=== PATIENT | female | born 1945 | race Caucasian/White ===

== ENCOUNTER 2017-04-09 02:22 | Emergency (ER) | payer BC, MEDICARE ==
[2017-04-09] MEDS ORDERED: ONDANSETRON ODT 4 MG TAB.RAPDIS ONE (02:55)
[2017-04-09] MEDS ORDERED: AMOXICILLIN 250 MG CAPSULE PO ONE (03:14)
--- NOTE | 2017-04-09 03:15 | ER NURSING DOCUMENTATION ---
Nurse's Notes [facility] Name:Vero Reeves Age:71 yrs Sex:Female :1945 Arrival Date:04/09/2017 Time:02:22 Bed4 Private MD:Timoteo Lopes Diagnosis:Acute Sinusitis Presentation: 04/09 02:32 Transition of care: patient was not received from another setting of care. Notified ED nf Physician of patient's arrival and CC Dr. Coburn notified. 02:32 Acuity: EVARISTO 3 nf 02:32 Method Of Arrival: Walk In nf 02:32 Presenting complaint: Patient states: "I've has a sinus infection since the "; nf patient states since March 28 while traveling she has had sinus congestion and productive cough and earaches and mild sore throat; has not yet seen a physician for symptoms; took mucinex tonight; has vomited x2 tonight after "gagging on drainage" and coughing. Triage Assessment: 02:36 General: Appears ill, well nourished, well groomed, Behavior is pleasant. Pain: nf Complains of pain in bilateral earaches, sore throat, sinus pain. 02:36 Cardiovascular: Rhythm is regular. Respiratory: Respiratory effort is even, unlabored, nf Respiratory pattern is regular, Breath sounds are clear bilaterally. Reports cough that is productive, persistent the patient has moderate shortness of breath. GI: Reports nausea. Historical: - Allergies: Erythromycin; - Home Meds: 1. Metformin Oral 2. Glyburide Oral - PMHx: Diabetes - NIDDM; HIGH CHOLESTEROL; Cervical Sprain - : Acute (April 13, 2016); - PSHx: NA ; - Tetanus: Other NA today. - Ebola Screening: : Patient denies exposure to infectious person. Patient reports travel to an Ebola-affected area in the 21 days before illness onset. Patient reports to have traveled to [place]. - Immunization history: Pneumococcal vaccine is up to date, Flu Vaccine < 1 year. - Social history: Smoking status: Patient uses tobacco products, current every day smoker. Patient/guardian denies using alcohol. Screenin:39 Infectious Disease Risk None. Abuse screen: Denies threats or abuse. Nutritional nf screening: No deficits noted. Assessment: 02:39 See Triage Assessment done by same RN. nf Vital Signs: 02:00 BP 140 / 86; Pulse 52; Resp 18; Temp 97.5(O); Pulse Ox 95% on R/A; Weight 77.11 kg; nf Height 5 ft. 8 in. (172.72 cm); Pain 5/10; 03:12 BP 136 / 81; Pulse 64; Resp 16; nf 02:00 Body Mass Index 25.85 (77.11 kg, 172.72 cm) ED Course: 02:23 Patient arrived in ED. em2 02:23 Timoteo Lopes MD is Private Physician. em2 02:30 Irlanda Swanson RN is Primary Nurse. nf 02:34 Triage completed. nf 02:34 William Coburn MD is Attending Physician. sc 02:39 Arm band placed on Bed in low position Call Light in Reach Gowned Side rails up x1. nf 02:39 Valuables Remains with patient. Pulse Ox - RN Monitoring Only NIBP On - RN Monitoring nf Only. Door closed. Noise minimized. Lights dimmed. Moved to private room. Verbal reassurance given. Warm blanket given. Pillow given. Diet: Patient given water. 02:59 Timoteo Lopes MD is Referral Physician. sc Administered Medications: 02:45 Drug: Zofran 4 mg; Route: PO; nf 03:00 Follow up: Response: Nausea is decreased nf 03:00 Drug: Amoxicillin 500 mg; Route: PO; nf 03:00 Follow up: Response: Medication administered at discharge. nf Outcome: 03:00 Discharge ordered by . id 03:12 Discharged to home ambulatory. nf 03:12 Condition: improved 03:12 Discharge Assessment: Patient awake, alert and oriented x 3. No cognitive and/or functional deficits noted. Patient verbalized understanding of disposition instructions. 03:12 Discharge instructions given to patient, Instructed on discharge instructions, follow up and referral plans. medication usage, Demonstrated understanding of instructions, medications, Prescriptions given X 2, amoxicillin and nasonex and encouraged to get neti pot for sinus irrigation 03:14 Patient left the ED. nf 04/10 10:27 Discharge F/U Call: Spoke with: patient. Have you made a f/u appointment? yes lp Signatures: Irlanda Swanson RN RN La Nena Evans RN RN William Coburn MD MD id [id number], [id number] em2
--- NOTE | 2017-04-09 03:15 | ER PHYSICIAN DOCUMENTATION ---
Physician Documentation [facility] Name:Vero Reeves Age:71 yrs Sex:Female :1945 Arrival Date:04/09/2017 Time:02:22 Bed4 Private MD:Timoteo Lopes ED, [place] Disposition: 04/09/17 03:00 Discharged to Home/Self Care. Impression: Acute Sinusitis. - Condition is Good. - Discharge Instructions: SINUSITIS, Abx Tx. - Prescriptions for Nasonex 50 mcg/actuation Nasal spray,non- aerosol - spray 2 spray by INTRANASAL route once daily; 1 bottle. Amoxicillin 500 mg Oral Capsule - take 1 capsule by ORAL route every 8 hours for 10 days; 30 tablet. - Medical Reconciliation form form. - Follow up: Timoteo Lopes MD; When: As needed; Reason: Continuance of care. - Problem is an ongoing problem. - Symptoms have improved. HPI: 04/09 03:01 This 71 yrs old Female presents to ER via Walk In with complaints of Sinus sc Congestion. 03:01 The patient or guardian reports sinus drainage causing cough and gagging. Onset: The sc symptom(s)/episode began/occurred 10 day(s) ago. Severity of symptoms: At their worst the symptoms were moderate. Modifying factors: The symptoms are alleviated by nothing. Associated signs and symptoms: Pertinent positives: earache, nausea, rhinorrhea, sore throat. The patient has experienced similar episodes in the past, chronically. sinusitis with abx and steroids and nasal spray twice this year, usually abx once a year. Historical: - Allergies: Erythromycin; - Home Meds: 1. Metformin Oral 2. Glyburide Oral - PMHx: Diabetes - NIDDM; HIGH CHOLESTEROL; Cervical Sprain - : Acute (April 13, 2016); - PSHx: NA ; - Tetanus: Other NA today. - Ebola Screening: : Patient denies exposure to infectious person. Patient reports travel to an Ebola-affected area in the 21 days before illness onset. Patient reports to have traveled to [place]. - Immunization history: Pneumococcal vaccine is up to date, Flu Vaccine < 1 year. - Social history: Smoking status: Patient uses tobacco products, current every day smoker. Patient/guardian denies using alcohol. ROS: 03:02 Constitutional: Negative for fever, chills, and weight loss. sc Eyes: Negative for injury, pain, redness, and discharge. Cardiovascular: Negative for chest pain, palpitations, and edema. Abdomen/GI: Negative for abdominal pain, nausea, vomiting, diarrhea, and constipation. Back: Negative for injury and pain. MS/Extremity: Negative for injury and deformity. Skin: Negative for injury, rash, and discoloration. 03:02 Neuro: Negative for headache, weakness, numbness, tingling, and seizure. sc 03:02 ENT: Positive for ear pain, rhinorrhea, sinus congestion, sinus pain, sore throat. 03:02 Respiratory: Positive for cough, Negative for shortness of breath, sputum production, wheezing. Exam: Constitutional: This is a well developed, well nourished patient who is awake, alert, and in no acute distress. Head/Face: Normocephalic, atraumatic. Eyes: Pupils equal round and reactive to light, extra-ocular motions intact. Lids and lashes normal. Conjunctiva and sclera are non-icteric and not injected. Cornea within normal limits. Periorbital areas with no swelling, redness, or edema. Neck: Trachea midline, no thyromegaly or masses palpated, and no cervical lymphadenopathy. Supple, full range of motion without nuchal rigidity, or vertebral point tenderness. No meningismus. Respiratory: Lungs have equal breath sounds bilaterally, clear to auscultation and percussion. No rales, rhonchi or wheezes noted. No increased work of breathing, no retractions or nasal flaring. Back: No spinal tenderness. No costovertebral tenderness. Full range of motion. 03:03 Skin: Warm, dry with normal turgor. Normal color with no rashes, no lesions, and no sc evidence of cellulitis. 03:03 ENT: Nose: nasal drainage, and is seen coming from both nares, that is purulent. 03:03 Respiratory: the patient does not display signs of respiratory distress, Respirations: normal, Breath sounds: are normal, clear throughout. Vital Signs: 02:00 BP 140 / 86; Pulse 52; Resp 18; Temp 97.5(O); Pulse Ox 95% on R/A; Weight 77.11 kg; nf Height 5 ft. 8 in. (172.72 cm); Pain 5/10; 03:12 BP 136 / 81; Pulse 64; Resp 16; nf 02:00 Body Mass Index 25.85 (77.11 kg, 172.72 cm) nf MDM: 02:49 Patient medically screened. sc 03:03 Differential Diagnosis: Bronchitis Upper Respiratory Infection Sinusitis. Data sc reviewed: vital signs, nurses notes, old medical records, and as a result, I will discharge patient. Dispensed Medications: 02:45 Drug: Zofran 4 mg; Route: PO; nf 03:00 Follow up: Response: Nausea is decreased nf 03:00 Drug: Amoxicillin 500 mg; Route: PO; nf 03:00 Follow up: Response: Medication administered at discharge. nf Signatures: Irlanda Swanson RN RN nf William Coburn MD MD az
== END 2017-04-09 03:14 | disposition home or self-care (01) ==
LOC: ER 02:22
DX: J01.90 Acute sinusitis, unspecified (principal); R05 Cough; E11.9 Type 2 diabetes mellitus without complications; Z79.899 Other long term (current) drug therapy
CPT/HCPCS: 99282; 99283